=== PATIENT | female | born 1965 | race Caucasian/White ===

== ENCOUNTER → 2019-12-28 10:02 | Outpatient (BNVA) | payer OTHER, SELFPAY | PROVIDERS: Family Provider Nurse Practitioner; PCP Nurse Practitioner; Visit Provider Nurse Practitioner | DX: Z78.0 Asymptomatic menopausal state (principal); E78.5 Hyperlipidemia, unspecified; I10 Essential (primary) hypertension; E55.9 Vitamin D deficiency, unspecified; Z23 Encounter for immunization | CPT/HCPCS: 80053; 80061; 81000; 82306; 84443; 88175 ==

== ENCOUNTER → 2020-09-30 08:05 | Outpatient (BNVA) | payer SELFPAY | PROVIDERS: Family Provider Nurse Practitioner; PCP Nurse Practitioner; Visit Provider Dermatology | DX: Z01.89 Encounter for other specified special examinations (principal) | CPT/HCPCS: 85025 ==

== ENCOUNTER → 2020-12-30 09:29 | Outpatient (BNVA) | payer SELFPAY | PROVIDERS: Family Provider Nurse Practitioner; PCP Nurse Practitioner; Visit Provider Dermatology | DX: Z01.89 Encounter for other specified special examinations (principal) ==

== ENCOUNTER 2021-02-05 07:50 | Outpatient (CLI) | payer SELFPAY ==
[2021-02-05 08:28] VITALS: BP 135/83; BP 138/84; PULSE 66; PULSE 68; RESP 18; RESP 20; TEMP 36.7; O2SAT 95
--- NOTE | 2021-02-05 08:44 | ED_ITS ---
HPI - General Adult History of Present Illness: HPI narrative: This patient presents to the emerg ency department for outpatient monoclonal antibiotic therapy. Due to recent COVID-19 infection. Patient states no increased shortness of breath is mild body aches. Patient states that he did have previous vaccination with fingernail. Patient understands risk and concerns were answered patient may proceed with monoclonal antibody infusion. Will be discharged afterward if no complications. Onset (ago): day(s) Associated symptoms: Deny chest pain, dyspnea, headache(s), nausea, rash, palpitations or vomiting Review of Systems General: Reports: 10 or more systems reviewed and unremarkable except in HPI and below Const: Denies: fever(s), chills, body aches or fatigue Eyes: Denies: change in vision or blurry vision ENMT: Denies: throat pain, hoarseness or mouth pain Card: Denies: chest pain, palpitations, irregular heart rhythm, edema, swelling of feet/ankles or lightheadedness Resp: Denies: dyspnea, productive cough, non-productive cough, wheezing or pain on inspiration GI: Denies: abdominal pain, nausea or vomiting : Denies: flank pain, difficulty voiding, dysuria, urinary frequency, urinary urgency or urinary hesitancy Musc: Denies: neck pain, back pain, extremity pain, extremity swelling, joint pain, joint swelling, joint redness, joint warmth or limited range of motion Skin/Breast: Denies: rash, pruritus, erythema or skin tenderness Neuro: Denies: headache(s), numbness in extremities or weakness in extremities Psych: Denies: anxiety or depression PFS ED PFSH: Medical History ASHD (arteriosclerotic heart disease) A three-vessel coronary artery bypass surgery in 2006. Had a WOODS to the LAD, venous graft to the PDA and the obtuse marginal artery. Cardiac authorization 2008 revealed occluded venous graft to the obtuse marginal artery. Breast nodule Hyperlipidemia Hypertension Vitamin D deficiency Surgical History History of colonoscopy March 2019 History of tubal ligation Hx of CABG Family History Father CAD (coronary artery disease) Grandfather CAD (coronary artery disease) Cancer Grandmother CAD (coronary artery disease) Cancer Diabetes Mother Cancer Other Hyperlipidemia Hypertension Denies family history of Clotting disorder Dementia Chronic kidney disease (CKD) Suicide Anesthesia complication Bleeding disorder Lung disease Stroke Social History Smoking and tobacco status: former smoker Alcohol intake: never Adopted: No Lives independently: Yes Household members: spouse Housing: House Marital status: Number of children: 2 Number of grandchildren: 0 Highest education level completed: High School Graduate service: No Current occupational status: unemployed Pets and animals: Yes History of recent travel: No Current gender identity: Female Physical Exam Const: COMMON NORMALS: no acute distress, average body habitus, patient oriented x3, no limitations, healthy appearing, alert and well nourished HENMT: COMMON NORMALS: normocephalic, atraumatic, hearing grossly normal bilaterally, external ears normal, EAC's normal, TM's normal bilaterally, Normal external nose present, Normal nasal mucous membranes and turbinates present, moist oral mucous membranes, oropharynx normal, dentition normal and gingiva normal HEAD & SCALP: normocephalic and atraumatic NOSE: Normal external nose present and Normal nasal mucous membranes and turbinates present EXTERNAL EAR: Yes external ears normal EXTERNAL AUDITORY CANAL: EAC's normal TYMPANIC MEMBRANE: TM's normal bilaterally Neck/C-Spine: COMMON NORMALS: full ROM, no lymphadenopathy, supple, no menin geal signs, no JVD, Thyroid normal and No carotid bruits THYROID: Thyroid normal Chest: COMMONS NORMALS: normal inspection of the chest, normal palpation of entire chest wall, normal inspection of the breasts and normal palpation of the breasts Breast/axilla inspection: Yes normal inspection of the breasts BREAST/AXILLA PALPATION: Yes normal palpation of the breasts Resp: COMMON NORMALS: normal respiratory effort, No retractions, No use of accessory muscles, clear to auscultation bilaterally and percussion normal AUSCULTATION: clear to auscultation bilaterally PERCUSSION: percussion normal Cardio: COMMON NORMALS: no JVD, regular rate, regular rhythm, S1 normal heart sound present, S2 normal heart sound present, No gallops present (Cardio), No clicks present (Cardio), No murmurs present (Cardio), No rub (Cardio) and Peripheral pulses 2+ throughout RATE: regular rate RHYTHM: regular rhythm HEART SOUNDS: S1 normal heart sound present and S2 normal heart sound present PERIPHERAL PULSES: Peripheral pulses 2+ throughout GI: COMMON NORMALS: Normal to inspection, nondistended, normoactive bowel sounds present, Soft to palpation, non-tender, No hepatosplenomegaly present, no masses and no bruits PALPATION: Yes Soft to palpation and Yes No hepatosplenomegaly present Back/Pelvis: COMMON NORMALS: thoracic and lumbar spine normal to inspection, no thoracic nor lumbar tenderness, thoraco-lumbar ROM normal and straight leg raise negative bilaterally Extremity: COMMON NORMALS: normal to inspection, full ROM, capillary refill normal, no joint enlargement, no clubbing, cyanosis or edema, no calf tenderness and no pedal edema Neuro: COMMON NORMALS: patient oriented x3 SENSORIUM/ORIENTATION: Yes alert MENINGEAL SIGNS: Yes no meningeal signs Course Vital Signs: Vital signs: Vital Signs Temperature 98.0 F 02/05/21 08:28 Pulse Rate 68 02/05/21 08:28 Respiratory Rate 18 02/05/21 08:28 Blood Pressure 135/83 02/05/21 08:28 Pulse Oximetry 95 02/05/21 08:28 MDM - General Adult MDM Narrative: Medical decision making narrative: This patient presents to the emergency department for outpatient monoclonal antibiotic therapy. Due to recent COVID-19 infection. Patient states no increased shortness of breath is mild body aches. Patient states that he did have previous vaccination with fingernail. Patient understands risk and concerns were answered patient may proceed with monoclonal antibody infusion. Will be discharged afterward if no complications. Discharge Plan Discharge Patient Disposition: Home Prescriptions: No Action vitamin B complex [B Complex-Vitamin B12] Tablet 1 tab PO QDAY RF: 0 aspirin 325 mg tablet 325 mg PO QDAY RF: 0 multivitamin [Multiple Vitamins] Tablet 1 tab PO QAM RF: 0 omega-3 fatty acids [Fish Oil Concentrate] 1,000 mg capsule 1,000 mg PO QDAY RF: 0 amlodipine 10 mg tablet 10 mg PO QDAY Qty: 90 RF: 1 carvedilol 25 mg tablet 25 mg PO BID Qty: 180 RF: 1 cholecalciferol (vitamin D3) 1,250 mcg (50,000 unit) tablet 50,000 unit PO .twice a month Qty: 6 RF: 1 furosemide [Lasix] 20 mg tablet 20 mg PO QDAY Qty: 90 RF: 1 lisinopril 40 mg tablet 40 mg PO QDAY Qty: 90 RF: 1 magnesium oxide 400 mg magnesium capsule 400 mg PO BID Qty: 180 RF: 1 potassium chloride [Klor-Con 10] 10 mEq tablet extended release 10 meq PO QDAY Qty: 90 RF: 1 rosuvastatin [Crestor] 20 mg tablet 20 mg PO QDAY Qty: 90 RF: 1 cetirizine [Zyrtec] 10 mg tablet 10 mg PO DAILY PRNRF: 0 nitroglycerin [Nitrostat] 0.4 mg tablet, sublingual 0.4 mg SUBLINGUAL Q5M PRN (Reason: chest pain) 30 Days Qty: 30 RF: 3 levothyroxine 25 mcg tablet 12.5 mcg PO DAILY Qty: 90 RF: 0 Referrals: Thea Umana FNP-C [Primary Care Provider] - Coding Level of Care Code ED Evaporator Operator for Milan Lynn
[2021-02-05 11:49] VITALS: BP 138/84; PULSE 66; RESP 20; O2SAT 95
--- NOTE | 2021-02-12 15:15 | DCPLANNER ---
certified wellness program manager had message that patient received the monoclonal antibody infusion. certified wellness program manager called phone number [phone], unable to speak with patient at this time, a voicemail was left for patient to return employment evaluator/case manager phone call.
== END 2021-02-05 12:55 | disposition home or self-care (01) ==
PROVIDERS: PCP Nurse Practitioner; Visit Provider Nurse Practitioner
DX: U07.1 COVID-19 (principal); I25.10 Atherosclerotic heart disease of native coronary artery without angina pectoris; E78.5 Hyperlipidemia, unspecified; I10 Essential (primary) hypertension; E55.9 Vitamin D deficiency, unspecified; Z95.1 Presence of aortocoronary bypass graft; Z82.49 Family history of ischemic heart disease and other diseases of the circulatory system; Z87.891 Personal history of nicotine dependence

== ENCOUNTER → 2021-04-20 16:10 | Outpatient (BNVA) | payer BC, SELFPAY | PROVIDERS: PCP Nurse Practitioner; Visit Provider Internal Medicine Cardiovascular Disease | DX: R00.2 Palpitations (principal); R55 Syncope and collapse; R06.00 Dyspnea, unspecified; I50.33 Acute on chronic diastolic (congestive) heart failure; R06.02 Shortness of breath; I10 Essential (primary) hypertension; I25.10 Atherosclerotic heart disease of native coronary artery without angina pectoris; E78.2 Mixed hyperlipidemia | CPT/HCPCS: 80048; 83880 ==

== ENCOUNTER → 2021-06-23 09:21 | Outpatient (BNVA) | payer SELFPAY | PROVIDERS: PCP Nurse Practitioner; Visit Provider Dermatology | DX: Z01.89 Encounter for other specified special examinations (principal) ==

== ENCOUNTER 2021-06-25 06:59 | Outpatient (CLI) | payer BC, SELFPAY ==
--- NOTE | 2021-06-25 07:15 | USCV_ITS ---
Janett Samuel Age: 55 Gender: F : 1965 Exam Date: 06/25/2021 07:18 Ordering Phys: Stuart Vazquez MD ([email or web address]) Technologist: MICHELLE Exam Location: [facility] Indication: DAREDN since COVID January 2021. hx CABG 2006 BP: / HR: 68 Rhythm: Sinus Technical Quality: Adequate MEASUREMENTS (Male / Female) Normal Values 2D ECHO LV Diastolic Diameter PLAX 4.3 cm 4.2 - 5.9 / 3.9 - 5.3 cm LV Systolic Diameter PLAX 2.8 cm IVS Diastolic Thickness 1.6 cm 0.6 - 1.0 / 0.6 - 0.9 cm IVS Systolic Thickness 1.7 cm LVPW Diastolic Thickness 1.4 cm 0.6 - 1.0 / 0.6 - 0.9 cm LVPW Systolic Thickness 1.7 cm LVOT Diameter 2.1 cm LV Ejection Fraction 2D Teich 55.9 % LV Ejection Fraction MOD 2C 70.1 % LV Ejection Fraction 2C AL 72.4 % LA Diameter 4.1 cm LA Width 3.8 cm LA Height 4.5 cm RA Width 3.6 cm RA Height 4.9 cm Aorta at Sinotubular Diameter 2.7 cm M-MODE Aortic Annulus Diameter 2.6 cm LA Ao Ratio MM 1.5 MV E Point Septal Separation 0.3 cm DOPPLER AV Peak Velocity 130.0 cm/s LVOT Peak Velocity 106.0 cm/s AV Area Cont Eq vti 3.2 cm squared AV Area Cont Eq pk 2.9 cm squared MV Area PHT 4.0 cm squared Mitral E to A Ratio 0.9 MV E' Velocity 46.5 cm/s Mitral E to MV E' Ratio 10.5 Mitral E to LV E' Lateral Ratio 9.7 Mitral E to LV E' Septal Ratio 11.7 TR Peak Velocity 227.0 cm/s TR Peak Gradient 20.6 mmHg TV Peak E Velocity 74.0 cm/s Right Atrial Pressure 5.0 mmHg Pulmonary Artery Systolic Pressu 25.6 mmHg PV Peak Velocity 99.0 cm/s RV Acceleration Time 0.1 s RV Ejection Time 0.3 s RV AcT/ET 0.3 FINDINGS Left Ventricle Normal LV size and ejection fraction of 55%. Mild hypokinesia of the septum and the inferobasal segment.Grade I/IV diastolic dysfunction (abnormal relaxation filling pattern), normal to mildly elevated filling pressures. Right Ventricle The right ventricle is normal in size and function. Right Atrium The right atrium is normal in size. Left Atrium Mildly increased left atrial size. Mitral Valve No gross abnormalities noted Aortic Valve Thickened aortic valve. Trace aortic valve regurgitation. Tricuspid Valve Trace tricuspid valve regurgitation. Pulmonic Valve Pulmonic valve not well visualized. Pericardium Normal pericardium without effusion. Aorta Normal ascending aorta dimension. CONCLUSIONS Normal LV size and ejection fraction of 55%. Wall motion normality as mentioned above. Mild concentric left ventricular hypertrophy Type I diastolic dysfunction. Thickened aortic valve. Trace aortic valve regurgitation. Trace tricuspid valve regurgitation. Estimated pulmonary artery peak systolic pressure 26 mm of Hg There is no pericardial effusion. There are no intracardiac masses. No previous study is available for comparison. Dr Stuart Vazquez MD FACC (Electronically Signed) Final Date: 26 June 2021 00:29 S
== END 2021-06-25 07:00 | disposition home or self-care (01) ==
LOC: RAD 07:03
PROVIDERS: PCP Nurse Practitioner; Visit Provider Internal Medicine Cardiovascular Disease
DX: R06.09 Other forms of dyspnea (principal); R00.2 Palpitations; Z95.1 Presence of aortocoronary bypass graft; I08.2 Rheumatic disorders of both aortic and tricuspid valves
CPT/HCPCS: 93306

== ENCOUNTER → 2021-09-22 09:17 | Outpatient (BNVA) | payer SELFPAY | PROVIDERS: PCP Nurse Practitioner; Referring Provider Nurse Practitioner; Visit Provider Dermatology | DX: Z01.89 Encounter for other specified special examinations (principal) ==

== ENCOUNTER → 2022-03-23 11:22 | Outpatient (BNVA) | payer SELFPAY | PROVIDERS: PCP Nurse Practitioner; Visit Provider Dermatology | DX: Z01.89 Encounter for other specified special examinations (principal); E03.9 Hypothyroidism, unspecified; E55.9 Vitamin D deficiency, unspecified; I25.10 Atherosclerotic heart disease of native coronary artery without angina pectoris; I10 Essential (primary) hypertension; E78.5 Hyperlipidemia, unspecified ==

== ENCOUNTER → 2022-05-26 10:20 | Outpatient (BNVA) | payer BC, SELFPAY | PROVIDERS: Visit Provider Nurse Practitioner | DX: J02.9 Acute pharyngitis, unspecified (principal); R06.02 Shortness of breath | CPT/HCPCS: 71046; 85025; 87071; 87880 ==

== ENCOUNTER 2022-06-15 11:48 | Outpatient (CLI) | payer BC, SELFPAY ==
--- NOTE | 2022-06-15 12:09 | XRR_ITS ---
PROCEDURE INFORMATION: Exam: XR Chest Exam date and time: 06/15/2022 12:16 PM Age: 56 years old Clinical indication: Shortness of breath; Prior surgery; Surgery type: Triple bypass; Patient HX: Congestion, SOB for 1 month; Additional info: R06.02 - shortness of breath TECHNIQUE: Imaging protocol: Radiologic exam of the chest. Views: 2 views. COMPARISON: CR XR chest 2V* [id number] 05/26/2022 10:18 AM FINDINGS: Lungs: Unremarkable. No consolidation. Pleural spaces: Unremarkable. No pleural effusion. No pneumothorax. Heart/Mediastinum: Unremarkable. No cardiomegaly. Bones/joints: Metallic sternotomy wires are present. XR/XR chest 2V* [id number] IMPRESSION: No acute findings. Status post sternotomy
[2022-06-15 12:27] LABS: Basophils % 0.6 %; Eosinophils # 0.3 10^3/uL (0.0-0.8); Eosinophils % 4.8 %; Hematocrit 43.2 % (37.0-47.0); Hemoglobin 14.3 g/dL (11.5-15.3); Lymphocytes # 2.2 10^3/uL (0.8-4.8); Lymphocytes % 32.3 %; Mean Corpuscular HGB Conc 33.1 g/dL (30.0-36.0); Mean Corpuscular Hemoglobin 29.4 pg (28.0-34.0); Mean Corpuscular Volume 88.7 fl (81-99); Mean Platelet Volume 10.3 fL (7.4-10.4); Monocytes # 0.5 10^3/uL (0.2-0.9); Monocytes % 7.2 %; Nucleated Red Blood Cells % 0 %; Platelet Count 282 10^3/cmm (130-400); Red Blood Count 4.87 10^6/uL (4.1-5.3); Red Cell Distribution Width 12.2 % (12.1-15.1); White Blood Count 6.9 10^3/uL (4.0-10.0)
== END 2022-06-15 11:49 | disposition home or self-care (01) ==
LOC: LAB 11:51
PROVIDERS: Visit Provider Nurse Practitioner
DX: R06.02 Shortness of breath (principal)
CPT/HCPCS: 36415; 71046; 85025

== ENCOUNTER → 2022-09-06 15:06 | Outpatient (BNVA) | payer BC, SELFPAY | PROVIDERS: Visit Provider Internal Medicine Cardiovascular Disease | DX: R06.02 Shortness of breath (principal) | CPT/HCPCS: 36415; 80048; 83880 ==

== ENCOUNTER → 2022-09-21 09:13 | Outpatient (BNVA) | payer SELFPAY | PROVIDERS: PCP Nurse Practitioner; Visit Provider Dermatology | DX: Z01.89 Encounter for other specified special examinations (principal); Z13.6 Encounter for screening for cardiovascular disorders ==

== ENCOUNTER 2022-11-10 08:44 | Outpatient (CLI) | payer BC, SELFPAY ==
[2022-11-10 09:01] VITALS: BMI 31.6
--- NOTE | 2022-11-10 09:15 | ECG_ITS ---
[facility] Test Date: 2022-11-10 Pat Name: Janett Samuel Department: Room: Gender: Female Data Sme: Farzana Zabala : 1965 Requested By: Stuart Vazquez Order Number: [id number] Ezequiel MD: Stuart Vazquez M.D. Interpretive Statements NAME OF STUDY: LEXISCAN SESTAMIBI STRESS TEST INDICATION: Shortness of Breath, PROCEDURE: At the baseline, the EKG revealed normal sinus rhythm with a diffuse nonspecific ST changes. The baseline heart was 70 bpm with a blood pressue of 121/72 mm of Hg Lexiscan was infused over a period of 20 seconds. A total of 0.4 milligrams of Lexiscan was infused. The stress phase was continued for a total of 5 minutes. Heart rate at the end of the stress phase was 89 bpm with a blood pressure 105/65 mm of Hg. The EKG at the peak infusion revealed no significant changes. Sestamibi was injected 20 seconds after the Lexiscan infusion. Heart rate at the end of the recovery phase was 81 bpm with a blood pressure of 101/62 mm of Hg. CONCLUSION: 1. No significant EKG changes with the LexiScan infusion 2. No LexiScan induced chest pain or cardiac arrhythmia 3. Normal blood pressure and heart rate response 4. Sestamibi/sestamibi perfusion scan pending; see separate report. Electronically Signed On 11-11-2022 21:58:10 CDT by Stuart Vazquez M.D. [id number]
--- NOTE | 2022-11-10 09:15 | NMCV_ITS ---
NM marlon perf SPECT r/s* [id number] Janett Samuel Age: 57 Gender: F : 1965 Exam Date: 11/10/2022 10:13 Ordering Phys: Stuart Vazquez MD ([email or web address]) Technologist: ROXANA Clark Exam Location: [facility] Indications: CORONARY ANGIOPLASTY STATUS, SHORTNESS OF BREATH STRESS TEST Please see separate [facility] for [facility] IMAGE PROTOCOL Rest/Stress 1 Lexiscan Day Radiopharmaceutical Dose (mCi) Administration Site Administered by Rest: Tc-99m 10.7 IV ROXANA Baez Sestamibi Stress:Tc-99m 32.2 IV ROXANA Baez Sestamibi Rest: 10-Nov-2022 60 Discovery 630 Stress: 10-Nov-2022 30 Discovery 630 0.4mg Lexiscan. Images obtained in supine and prone position. SPECT RESULTS Technical Quality: Excellent Raw Data Analysis: Normal Image Corrections: No attenuation or motion correction applied Summed Stress Score: 7 Summed Rest Score: 2 Summed Difference Score: 5 PERFUSION FINDINGS Moderate area of moderately decreased tracer uptake was noted in the basal and mid inferior, mid inferolateral and apical lateral regions. Significant reversibility was noted in the inferolateral region with minimal reversibility in the inferior and apical lateral regions FUNCTIONAL RESULTS (calculated via Gated SPECT) Stress Image LV EF (%): 83 Stress EDV (mL):95 TID: 1 Stress ESV (mL):16 FUNCTIONAL FINDINGS: Segmental wall motion analysis revealing no gross wall motion abnormalities IMPRESSIONS 1. Myocardial perfusion imaging revealing moderate area of moderately decreased tracer uptake in the inferior, inferolateral and apical lateral regions with significant reversibility, suggesting myocardial scarring with ischemia in the distribution of the right coronary artery/circumflex artery. 2. Normal LV ejection fraction of 83%. 3. LV wall motion analysis revealing no gross wall motion abnormalities. 4. Normal LV volume Compared to the study from 08/02/2018, the ischemic burden appears to be significantly more with additional involvement of the circumflex artery territory Dr Stuart Vazquez MD FACC (Electronically Signed) Final Date: 11 Nov 2022 07:37 S
[2022-11-10] MEDS: regadenoson 0.4 Mg/5 ml Syringe IVP (10:50)
[2022-11-10 11:10] VITALS: BP 111/62; PULSE 87
== END 2022-11-10 08:45 | disposition home or self-care (01) ==
PROVIDERS: PCP Nurse Practitioner; Visit Provider Internal Medicine Cardiovascular Disease
DX: R06.02 Shortness of breath (principal)
CPT/HCPCS: 36415; 78452; 93017; 96374; A9500; J2785

== ENCOUNTER → 2023-09-20 10:31 | Outpatient (BNVA) | payer SELFPAY | PROVIDERS: PCP Nurse Practitioner; Visit Provider Dermatology | DX: Z01.89 Encounter for other specified special examinations (principal); E03.9 Hypothyroidism, unspecified; E55.9 Vitamin D deficiency, unspecified; I10 Essential (primary) hypertension; E78.2 Mixed hyperlipidemia ==

== ENCOUNTER 2024-06-19 09:30 | Outpatient (CLI) | payer SELFPAY ==
[2024-06-19 09:52] LABS: HF Add Manual Diff No
[2024-06-19 09:55] LABS: Basophils % 0.4 %; Eosinophils # 0.2 10^3/uL (0.0-0.8); Eosinophils % 3.4 %; Hematocrit 45.3 % (36-47); Lymphocytes # 2.4 10^3/uL (0.8-4.8); Lymphocytes % 34.8 %; Mean Corpuscular HGB Conc 32.5 g/dL (30-55); Mean Corpuscular Hemoglobin 28.9 pg (27-33); Mean Platelet Volume 9.6 fL (7.4-10.4); Monocytes # 0.5 10^3/uL (0.2-0.9); Monocytes % 7.2 %; Neutrophils # 3.76 10^3/uL (1.8-7.7); Neutrophils % 54.1 %; Nucleated Red Blood Cells % 0 %; Platelet Count 281 10^3/cmm (157-399); Red Blood Count 5.09 10^6/uL (3.85-5.65); Red Cell Distribution Width 12.4 % (12.1-15.1); White Blood Count 6.96 10^3/uL (3.29-11.43)
[2024-06-19 10:20] LABS: Estmated Average Glucose 120; Hemoglobin A1C 5.8 % (4.0-6.0)
[2024-06-19 10:36] LABS: 25 Hydroxy Vitamin D 29 ng/mL (30-100); Alanine Aminotransferase 13 U/L (0-33); Albumin Level 4.3 g/dL (3.5-5.2); Alkaline Phosphatase 96 U/L (35-105); Anion Gap 13.4 (5-19); Aspartate Amino Transferase 19 U/L (0-32); Blood Urea Nitrogen 9 mg/dL (6-20); Calcium 9.1 mg/dL (8.5-10.5); Carbon Dioxide 27 mmol/L (22-29); Chloride 103 mmol/L (98-107); Cholesterol 121 mg/dL (0-200); Globulin 3.3 g/dL (1.3-4.6); Glomerular Filtration Rate 163.9 mL/min (90-130); Glucose 143 mg/dL (65-115); HDL Cholesterol 39 mg/dL (60-100); LDL Cholesterol Calculated 56 mg/dL (50-129); LDL HDL Ratio 1.44 RATIO (0.00-3.22); Osmolality Calculated 289 mOsm/kg (285-295); Potassium 4.4 mmol/L (3.5-5.1); Sodium 139 mmol/L (136-145); Thyroid Stimulating Hormone 3.43 uIU/mL (0.27-4.20); Total Bilirubin 0.3 mg/dL (0.15-1.2); Total Protein 7.6 g/dL (6.6-8.7); Triglycerides 130 mg/dL (0-150)
== END 2024-06-19 09:31 | disposition home or self-care (01) ==
LOC: LAB 09:33
PROVIDERS: PCP Nurse Practitioner; Visit Provider Dermatology
DX: Z13.9 Encounter for screening, unspecified (principal)
CPT/HCPCS: 36415

== ENCOUNTER 2024-08-09 14:48 | Observation (INO) | payer BC, SELFPAY ==
[2024-08-09] VITALS (18 sets, daily range): BP systolic 110–136; BP diastolic 40–79; PULSE 70–82; RESP 16–20; TEMP 36.8–37; O2SAT 81–95; BMI 34.0
--- NOTE | 2024-08-09 15:06 | XR_ITS ---
WS: [id number] Exam: XR chest 1V portable [id number] Date/Time of Exam: 08/09/2024 3:29 PM Reason For Exam: Shortness of breath Comparison 06/15/2022. The lungs are hyperinflated and clear. Plaque atelectasis in the LEFT base. Heart size is normal. The mediastinum is normal in contour. Signs of previous CABG surgery. Bony structures are intact. XR/XR chest 1V portable [id number] IMPRESSION: 1. Pulmonary hyperinflation which may indicate obstructive lung disease. 2. Plaque atelectasis in the LEFT base. No acute process.
--- NOTE | 2024-08-09 15:12 | ED_ITS ---
HPI - SOB/Dyspnea 2 General: Chief Complaint: Shortness of Breath/Dyspnea Stated Complaint: flu postive, sent from urgent care sob Time Seen by Provider: 08/09/24 15:01 History of Present Illness: HPI Narrative: 58-year-old female with a history of cor onary artery disease status post CABG, hypertension, hyperlipidemia who presents to the emergency room from urgent care with influenza and hypoxemia. She said she has been sick for about 4 days now. She has had cough. Shortness of breath. At the urgent care she was satting in the 70s and is requiring 4 to 5 L at this point. No altered mental status. No focal motor deficits. No chest pain. No abdominal pain. No vomiting. Related Data Home Medications Medication Instructions Recorded Confirmed aspirin 325 mg tablet 325 mg PO QDAY 08/07/19 08/09/24 multivitamin (Multiple Vitamins 1 tab PO QAM 08/07/19 08/09/24 tablet) cetirizine 10 mg tablet (Zyrtec) 10 mg PO DAILY 10/20/20 08/09/24 carvedilol 25 mg tablet 25 mg PO BID 08/09/24 08/09/24 cholecalciferol (vitamin D3) 125 125 mcg PO DAILY 08/09/24 08/09/24 mcg (5,000 unit) tablet (Vitamin D3) furosemide 20 mg tablet 20 mg PO DAILY 08/09/24 08/09/24 rosuvastatin 20 mg tablet (Crestor) 20 mg PO QPM 08/09/24 08/09/24 Previous Rx's Medication Instructions Recorded nitroglycerin 0.4 mg sublingual 0.4 mg sublingual Q5M PRN chest 03/01/22 tablet (Nitrostat) pain #30 tabs magnesium oxide 400 mg PO BID #180 caps 04/22/22 nebulizers #1 ea 05/26/22 potassium chloride 10 mEq 10 meq PO QDAY #90 tabs 10/18/23 tablet,extended release (Klor-Con) lisinopril 40 mg tablet 40 mg PO QDAY #90 tabs 10/31/23 albuterol sulfate 2.5 mg/3 mL 2.5 mg (3 mL) inhalation Q4H PRN 11/17/23 (0.083 %) solution for nebulization shortness of breath or wheezing #75 mL amlodipine 10 mg tablet 10 mg PO QDAY #90 tabs 07/13/24 Allergies Allergy/AdvReac Type Severity Reaction Status Date / Time oxycodone [From Percocet] Allergy Unknown unknown Verified 08/09/24 14:02 propoxyphene Allergy Unknown hives Verified 08/09/24 14:02 [From Darvocet-N] Review of Systems 2 Narrative: Constitutional symptoms: Negative except as documented in HPI. Skin symptoms: Negative except as documented in HPI. Eye symptoms: Negative except as documented in HPI. ENMT symptoms: Negative except as documented in HPI. Respiratory symptoms: Negative except as documented in HPI. Cardiovascular symptoms: Negative except as documented in HPI. Gastrointestinal symptoms: Negative except as documented in HPI. Genitourinary symptoms: Negative except as documented in HPI. Musculoskeletal symptoms: Negative except as documented in HPI. Neurologic symptoms: Negative except as documented in HPI. Psychiatric symptoms: Negative except as documented in HPI. Endocrine symptoms: Negative except as documented in HPI. PFSH ED 2 PFSH: Medical History (Updated 08/09/24 @ 16:34 by Bebe Acevedo MD) Vitamin D deficiency ASHD (arteriosclerotic heart disease) A three-vessel coronary artery bypass surgery in 2006. Had a WOODS to the LAD, venous graft to the PDA and the obtuse marginal artery. Cardiac authorization 2008 revealed occluded venous graft to the obtuse marginal artery. Hypertension Hyperlipidemia Breast nodule Surgical History (Updated 08/09/24 @ 14:40 by RENA Cota) History of colonoscopy March 2019 Hx of CABG History of tubal ligation Family History Father CAD (coronary artery disease) Grandfather CAD (coronary artery disease) Cancer Grandmother CAD (coronary artery disease) Cancer Diabetes Mother Cancer Other Hyperlipidemia Hypertension Denies family history of Clotting disorder Dementia Chronic kidney disease (CKD) Suicide Anesthesia complication Bleeding disorder Lung disease Stroke Social History Smoking and tobacco/nicotine status: former use of tobacco/nicotine Alcohol intake: never Substance/Drug Use: never Adopted: No Lives independently: Yes Household members: spouse Housing: House Marital status: Number of children: 2 Number of grandchildren: 0 Highest education level completed: High School Graduate service: No Current occupational status: unemployed Pets and animals: Yes Current gender identity: Female Physical Exam 2 Narrative: EXAM NARRATIVE: General: Alert, no acute distress. Skin: Warm, dry. Head: Normocephalic, atraumatic. Neck: Supple, trachea midline. Eye: Extraocular movements are intact. Ears, nose, mouth and throat: Oral mucosa moist. Cardiovascular: Regular rate and rhythm, Normal peripheral perfusion. Respiratory: coarse, some mild wheeze, patient is tachypneic with some retractions. Moderate increased work of breathing. Gastrointestinal: Soft, Nontender, Non distended, Normal bowel sounds. Musculoskeletal: Normal ROM, no deformity. Neurological: Alert and oriented to person, place, time, and situation, No focal neurological deficit observed. Psychiatric: Cooperative, appropriate mood & affect. Course 2 Vital Signs: Vital signs: Vital Signs Temperature 98.6 F 08/09/24 14:53 Pulse Rate 82 08/09/24 15:35 Respiratory Rate 16 08/09/24 15:12 Blood Pressure 136/79 08/09/24 15:35 Pulse Oximetry 93 08/09/24 15:35 Oxygen Delivery Me thod Nasal Cannula 08/09/24 15:35 Oxygen Flow Rate 3.5 08/09/24 15:35 MDM - SOB/Dyspnea Medical Decision Making Differential diagnosis for patient with shortness of breath includes but is not limited to and based on the above HPI, review of systems and physical exam: Pneumonia. Bronchitis. Asthma or COPD with acute exacerbation. Acute coronary syndrome / TN. Pulmonary embolism. Anxiety. Congestive heart failure. Viral infections including influenza and Covid-19. Atrial fibrillation. Anxiety. Pleural effusion. Pneumothorax. Orders placed to evaluate differential diagnosis based on the above differential, HPI and physical exam EKG: Time 1533. Rate 79. Normal sinus rhythm, No ST-T changes, no ectopy, normal IA & QRS intervals, This was reviewed and interpreted by myself the ER physician at 1535. Chest x-ray: Hyperexpansion. Plate atelectasis. Sternotomy wires. No infiltrate. No pneumothorax. This was reviewed and interpreted by myself the emergency room physician. I also reviewed the radiology report. Lab Review: Laboratory results were reviewed and interpreted by myself the emergency room physician. No leukocytosis. No anemia. Platelets are normal. No renal failure. Patient is positive for influenza. I reviewed the patient's medical record. Reexamination: Patient is still requiring 3 to 5 L nasal cannula. Otherwise she is remaining stable. No tachycardia. Work of breathing is better when at rest. Consultation: I spoke with Dr. Lenz who is on-call for the hospitalist service who agrees to admission Assessment and plan: Influenza Hypoxemia ?IV Solu-Medrol and an updraft in the emergency room. -I discussed the patient with the hospitalist on-call who is admitting the patient. - Discussed findings and plan with patient. Answered any questions. - All laboratory values were reviewed and interpreted personally by myself, the ER physician - All imaging was reviewed and interpreted personally by myself, the ER physician. - Evaluation and treatment of this problem were appropriate in the emergency setting Lab Data 08/09/24 15:24 08/09/24 15:24 Labs/Radiology: Radiology Impressions Chest X-Ray 08/09/24 15:06 IMPRESSION: 1. Pulmonary hyperinflation which may indicate obstructive lung disease. 2. Plaque atelectasis in the LEFT base. No acute process. Laboratory Results WBC 5.73 10^3/uL (3.29-11.43) 08/09/24 15:24 RBC 5.01 10^6/uL (3.85-5.65) 08/09/24 15:24 Hgb 14.60 g/dL (11.27-16.99) 08/09/24 15:24 Hct 44.2 % (36-47) 08/09/24 15:24 MCV 88.2 fl (85-98) 08/09/24 15:24 MCH 29.1 pg (27-33) 08/09/24 15:24 MCHC 33.0 g/dL (30-55) 08/09/24 15:24 RDW 12.4 % (12.1-15.1) 08/09/24 15:24 Plt Count 230 10^3/cmm (157-399) 08/09/24 15:24 MPV 10.2 fL (7.4-10.4) 08/09/24 15:24 Neut % (Auto) 59.7 % 08/09/24 15:24 Lymph % (Auto) 28.8 % 08/09/24 15:24 Craven % (Auto) 10.8 % 08/09/24 15:24 Eos % (Auto) 0.2 % 08/09/24 15:24 Baso % (Auto) 0.3 % 08/09/24 15:24 Neut # (Auto) 3.42 10^3/uL (1.8-7.7) 08/09/24 15:24 Lymph # (Auto) 1.7 10^3/uL (0.8-4.8) 08/09/24 15:24 Craven # (Auto) 0.6 10^3/uL (0.2-0.9) 08/09/24 15:24 Eos # (Auto) 0.0 10^3/uL (0.0-0.8) 08/09/24 15:24 Baso # (Auto) 0.0 10^3/uL (0.0-0.1) 08/09/24 15:24 Nucleated RBC % (auto) 0 % 08/09/24 15: Nucleated RBCs # 0.0 /100WBC 08/09/24 15:24 Specimen Type Arterial 08/09/24 15:10 Sample Site Radial, left 08/09/24 15:10 ABG pH 7.40 (7.35-7.45) 08/09/24 15:10 ABG pCO2 47.7 mmHg (35-45) H 08/09/24 15:10 ABG pO2 58.5 mmHg (80.0-100.0) L 08/09/24 15:10 ABG HCO3 29.7 mmol/L (22-26) H 08/09/24 15:10 ABG O2 Saturation 90.4 08/09/24 15:10 ABG Base Excess 4.0 mmol/L (-2.0-2.0) H 08/09/24 15:10 Eric Test Pos 08/09/24 15:10 A-a O2 Gradient 4.1 mmHg (5-10) L 08/09/24 15:10 Hematocrit 44.5 % (37-47) 08/09/24 15:10 Hgb O2 Saturation 88.5 % (95-100) L 08/09/24 15:10 Carboxyhemoglobin 1.2 %THgb (0.4-20.1) 08/09/24 15:10 Methemoglobin 0.9 % (0.4-1.5) 08/09/24 15:10 Total Hemoglobin 14.5 g/dL (12-16) 08/09/24 15:10 Sodium 142.0 mmol/L (131-143) 08/09/24 15:10 Potassium 3.4 mmol/L (3.5-5.0) L 08/09/24 15:10 Glucose 126.0 mg/dL (70-115) H 08/09/24 15:10 Ionized Calcium 1.1 mmol/L (1.1-1.4) 08/09/24 15:10 O2 Delivery Device Nc 08/09/24 15:10 O2 Liters/Min 3.5 % 08/09/24 15:10 Legal Administrative Assistant ID [place] 08/09/24 15:10 Sodium 139 mmol/L (136-145) 08/09/24 15:24 Potassium 3.9 mmol/L (3.5-5.1) 08/09/24 15:24 Chloride 99 mmol/L (98-107) 08/09/24 15:24 Carbon Dioxide 31 mmol/L (22-29) H 08/09/24 15:24 Anion Gap 12.9 (5-19) 08/09/24 15:24 BUN 9 mg/dL (6-20) 08/09/24 15:24 Creatinine 0.5 mg/dL (0.5-0.9) 08/09/24 15:24 GFR Calculation 126.7 mL/min (90-130) 08/09/24 15:24 Glucose 117 mg/dL (65-115) H 08/09/24 15:24 Calculated Osmolality 288 mOsm/kg (285-295) 08/09/24 15:24 Lactic Acid 0.9 mmol/L (0.5-2.2) 08/09/24 15:24 Calcium 8.5 mg/dL (8.5-10.5) 08/09/24 15:24 Total Bilirubin 0.2 mg/dL (0.15-1.2) 08/09/24 15:24 AST 27 U/L (0-32) 08/09/24 15:24 ALT 20 U/L (0-33) 08/09/24 15:24 Alkaline Phosphatase 102 U/L (35-105) 08/09/24 15:24 Troponin T Baseline 16 ng/L (0-10) H 08/09/24 15:24 C-Reactive Protein 30.3 mg/L (0.0-4.9) H 08/09/24 15:24 Total Protein 6.6 g/dL (6.6-8.7) 08/09/24 15:24 Albumin 4.1 g/dL (3.5-5.2) 08/09/24 15:24 Globulin 2.5 g/dL (1.3-4.6) 08/09/24 15:24 Coronavirus (PCR) Negative (Negative) 08/09/24 15:22 Influenza A (PCR) Positive (Negative) 08/09/24 15:22 Influenza Type B (PCR) Negative (Negative) 08/09/24 15:22 RSV (PCR) Negative (Negative) 08/09/24 15:22 All radiology interpretation(s) finalized by discharge Discharge Plan Discharge Patient Disposition: Placed in Observation Clinical Impression: Influenza A, Hypoxemia Coding Level of Care Code ED Media Manager for [place]
[2024-08-09 15:21] LABS: ABG PCO2 47.7 mmHg (35-45); Alveolar-Arterial Oxygen Gradi 4.1 mmHg (5-10); Arterial Blood Gas Hematocrit 44.5 % (37-47); Blood Gas Allen Test Pos; Blood Gas LPM 3.5 %; Blood Gas Operator Identificat WALCI; Blood Gas Sample Site Radial, left; Blood Gas Sample Type Arterial; Carboxyhemoglobin 1.2 %THgb (0.4-20.1); HCO3 ABG 29.7 mmol/L (22-26); HGB O2 Sat 88.5 % (95-100); Ionized Calcium Level - ABG 1.1 mmol/L (1.1-1.4); Methemoglobin 0.9 % (0.4-1.5); Oxygen Device NC; Oxygen Saturation ABG 90.4; PO2 ABG 58.5 mmHg (80.0-100.0); Potassium Level - ABG 3.4 mmol/L (3.5-5.0); Total Hemoglobin 14.5 g/dL (12-16)
[2024-08-09] MEDS: albuterol 2.5 mg/3 mL Neb INHALATION (15:24)
[2024-08-09] MEDS: methylPREDNISolone sod succ 125 mg/2 mL INJ IVP (15:28)
--- NOTE | 2024-08-09 15:33 | ECG_ITS ---
[facility]: 2024-08-09 Pat Name: Janett Samuel Department: Room: Gender: Female Enamel Buffer: : 1965 Requested By: Bebe Oreilly Order Number: [id number] Ezequiel MD: Aaron Morrison M.D. Measurements Intervals [place] Rate: 79 P: 64 MI: 145 QRS: 81 QRSD: 98 T: 79 QT: 363 QTc: 417 Interpretive Statements SINUS RHYTHM NONSPECIFIC T-WAVE ABNORMALITY No previous ECG available for comparison Electronically Signed On 08-11-2024 13:21:56 [employer]SEMBLER by Aaron Morrison M.D. [email or web address]
[2024-08-09 15:46] LABS: Basophils % 0.3 %; Eosinophils % 0.2 %; Hematocrit 44.2 % (36-47); Lymphocytes # 1.7 10^3/uL (0.8-4.8); Lymphocytes % 28.8 %; Mean Corpuscular Hemoglobin 29.1 pg (27-33); Mean Corpuscular Volume 88.2 fl (85-98); Mean Platelet Volume 10.2 fL (7.4-10.4); Monocytes # 0.6 10^3/uL (0.2-0.9); Monocytes % 10.8 %; Neutrophils # 3.42 10^3/uL (1.8-7.7); Neutrophils % 59.7 %; Nucleated Red Blood Cells % 0 %; Platelet Count 230 10^3/cmm (157-399); Red Blood Count 5.01 10^6/uL (3.85-5.65); Red Cell Distribution Width 12.4 % (12.1-15.1); White Blood Count 5.73 10^3/uL (3.29-11.43)
[2024-08-09 16:04] LABS: Lactic Sepsis W/Reflex 0.9 mmol/L (0.5-2.2); Troponin(5th) Baseline 16 ng/L (0-10)
[2024-08-09 16:09] LABS: Alanine Aminotransferase 20 U/L (0-33); Albumin Level 4.1 g/dL (3.5-5.2); Alkaline Phosphatase 102 U/L (35-105); Anion Gap 12.9 (5-19); Aspartate Amino Transferase 27 U/L (0-32); Blood Urea Nitrogen 9 mg/dL (6-20); C Reactive Protein 30.3 mg/L (0.0-4.9); Calcium 8.5 mg/dL (8.5-10.5); Carbon Dioxide 31 mmol/L (22-29); Chloride 99 mmol/L (98-107); Creatinine Clr Calc Pharmacy 133.0968; Globulin 2.5 g/dL (1.3-4.6); Glomerular Filtration Rate 126.7 mL/min (90-130); Glucose 117 mg/dL (65-115); Osmolality Calculated 288 mOsm/kg (285-295); Potassium 3.9 mmol/L (3.5-5.1); Sodium 139 mmol/L (136-145); Total Bilirubin 0.2 mg/dL (0.15-1.2); Total Protein 6.6 g/dL (6.6-8.7)
[2024-08-09 16:28] LABS: Influenza A POSITIVE (Negative); Influenza B NEGATIVE (Negative); Respiratory Syncytial Virus Ce NEGATIVE (Negative); SARS-CoV-2 PCR NEGATIVE (Negative)
--- NOTE | 2024-08-09 16:44 | P.HP_ITS ---
Providers/Chief Complaint 2 Primary Care Provider: KURT Storm Chief Complaint: flu postive, sent from urgent care sob History of Present Illness Janett Samuel is a 58 year old female with a past medical history significant for recurrent bronchitis, coronary artery disease with history of triple-vessel CABG in 2006, hypertension, and hyperlipidemia who presents to the emergency department with reported hypoxia. Per ED provider, patient was found to have SPO2 in the 70s prior to arrival and requiring 4 to 5 L supplemental oxygen support. Patient reports she was in her usual state of health until this past Tuesday when she developed flulike symptoms. She is diagnosed with influenza A. She reports her worst symptoms has been shortness of breath. She endorses associated symptoms of generalized malaise and fatigue. Endorses associated wheezing. She notes minimal exertion significantly worsens her symptoms. Denies alleviating factors. In the emergency department, patient was found to be hypoxic requiring supplemental oxygen support. Influenza A infection was confirmed. Chest x-ray showed hyperinflation suspicious for obstructive pathology. Patient does report receiving influenza vaccine this season. She does report history of recurrent bronchitis for which she has nebulizer at home. She states that she had pulmonary function testing done prior to CABG which was in 2006. She does not remember anything remarkable the PFT testing at that time. Review of Systems 2 Narrative: A complete review of systems was obtained and is negative except as stated in HPI. Medications/Allergies Home Medications Medication Instructions Recorded Confirmed Last Taken Type aspirin 325 mg tablet 325 mg PO QDAY 08/07/19 08/09/24 08/09/24 History multivitamin (Multiple Vitamins 1 tab PO QAM 08/07/19 08/09/24 08/09/24 History tablet) cetirizine 10 mg tablet (Zyrtec) 10 mg PO DAILY 10/20/20 08/09/24 08/09/24 History nitroglycerin 0.4 mg sublingual 0.4 mg sublingual Q5M PRN chest 03/01/22 08/09/24 Unknown Rx tablet (Nitrostat) pain #30 tabs magnesium oxide 400 mg PO BID #180 caps 04/22/22 08/09/24 08/09/24 Rx nebulizers #1 ea 05/26/22 08/09/24 Unknown Rx potassium chloride 10 mEq 10 meq PO QDAY #90 tabs 04/04/0308/09/24 08/09/24 Rx tablet,extended release (Klor-Con) lisinopril 40 mg tablet 40 mg PO QDAY #90 tabs 10/31/23 08/09/24 08/09/24 Rx albuterol sulfate 2.5 mg/3 mL 2.5 mg (3 mL) inhalation Q4H PRN 11/17/23 08/09/24 Unknown Rx (0.083 %) solution for nebulization shortness of breath or wheezing #75 mL amlodipine 10 mg tablet 10 mg PO QDAY #90 tabs 07/13/24 08/09/24 08/09/24 Rx carvedilol 25 mg tablet 25 mg PO BID 08/09/24 08/09/24 08/09/24 History cholecalciferol (vitamin D3) 125 125 mcg PO DAILY 08/09/24 08/09/24 08/09/24 History mcg (5,000 unit) tablet (Vitamin D3) furosemide 20 mg tablet 20 mg PO DAILY 08/09/24 08/09/24 08/09/24 History rosuvastatin 20 mg tablet (Crestor) 20 mg PO QPM 08/09/24 08/09/24 08/08/24 History Allergies Allergy/AdvReac Type Severity Reaction Status Date / Time oxycodone [From Percocet] Allergy Unknown unknown Verified 08/09/24 14:02 propoxyphene Allergy Unknown hives Verified 08/09/24 14:02 [From Darvocet-N] PFSH Acute 2 PFSH: Medical History Vitamin D deficiency ASHD (arteriosclerotic heart disease) A three-vessel coronary artery bypass surgery in 2006. Had a WOODS to the LAD, venous graft to the PDA and the obtuse marginal artery. Cardiac authorization 2008 revealed occluded venous graft to the obtuse marginal artery. Hypertension Hyperlipidemia Breast nodule Surgical History History of colonoscopy March 2019 Hx of CABG History of tubal ligation Family History Father CAD (coronary artery disease) Grandfather CAD (coronary artery disease) Cancer Grandmother CAD (coronary artery disease) Cancer Diabetes Mother Cancer Other Hyperlipidemia Hypertension Denies family history of Clotting disorder Dementia Chronic kidney disease (CKD) Suicide Anesthesia complication Bleeding disorder Lung disease Stroke Social History Smoking and tobacco/nicotine status: former use of tobacco/nicotine Alcohol intake: never Substance/Drug Use: never Adopted: No Lives independently: Yes Household members: spouse Housing: House Marital status: Number of children: 2 Number of grandchildren: 0 Highest education level completed: High School Graduate service: No Current occupational status: unemployed Pets and animals: Yes Current gender identity: Female Vitals/I&O/Wt Last Vital Signs Temp 98.6 F 08/09/24 14:53 Pulse 71 08/09/24 16:30 Resp 16 08/09/24 15:12 BP 111/40 08/09/24 16:30 Pulse Ox 94 08/09/24 16:30 O2 Del Method Room Air 08/09/24 16:30 O2 Flow Rate 3.5 08/09/24 15:35 Weight last 48 hrs Weight 89.811 kg Physical Exam 2 Narrative: General: Patient is awake. Sitting on stretcher. Appears fatigued but very pleasant. Conversational. Head: Normocephalic. Atraumatic. EOM intact. Dry mucous membranes. Neck: No JVD. Cardiovascular: RRR. No gallops. No murmurs. Lungs: Moderate air movement. End expiratory wheezing throughout bilateral lung trinh. Slight conversational dyspnea. On supplemental oxygen support via nasal cannula. No crackles rales or rhonchi present. Skin: No jaundice. No rashes. Abdomen: Normal bowel sounds, abdomen soft and nontender. Genito Urinary: Genital exam not performed since complaints not related. Rectal: Rectal exam not performed since no symptoms indicated blood loss. Extremities: No cyanosis or clubbing. Musculoskeletal: No swollen or erythematous joints. Neurological: Moves all 4 extremities. No myoclonus. Data 08/09/24 15:24 08/09/24 15:24 Micro: Microbiology 08/09/24 15:32 Blood Culture - Preliminary Blood SPECIMEN COLLECTED 08/09/24 15:24 Blood Culture - Preliminary Blood SPECIMEN COLLECTED A&P Assessment and plan (1) Acute exacerbation of chronic obstructive bronchitis: Acute exacerbation of suspected chronic obstructive bronchitis/COPD Trigger is acute influenza A infection Start systemic steroids Start inhaled steroids Schedule breathing treatments Treat underlying influenza infection Recommend full pulmonary function testing after complete recovery Supportive care (2) Hypoxemia: Acute hypoxic respiratory insufficiency secondary to reactive airway exacerbation Treatment of reactive airway exacerbation as above Provide supplemental oxygen, patient has not required home oxygen previously SpO2 goal of 92 to 96% (3) Influenza A: Droplet precautions Tamiflu (4) ASHD (arteriosclerotic heart disease): Continue aspirin Continue beta-gregorio Continue statin (5) Hypertension: Continue Norvasc Continue Coreg Continue lisinopril Qualifiers: Hypertension type: essential hypertension Qualified Code(s): I10 - Essential (primary) hypertension (6) Hyperlipidemia: Continue statin Qualifiers: Hyperlipidemia type: mixed hyperlipidemia Qualified Code(s): E78.2 - Mixed hyperlipidemia Plan DVT prophylaxis: Lovenox CODE STATUS: Full code Attestations 2 Medical Necessity Statement*: Patient presents with significant hypoxia, found to have reactive airway exacerbation with acute hypoxic respiratory insufficiency with expected hospitalization not to cross 2 midnights for IV steroids, breathing treatments, Tamiflu, supplemental oxygen support and supportive care. Coding Level of Care Code Acute Code for [facility] Diagnoses Acute exacerbation of chronic obstructive bronchitis J44.1 Hypoxemia R09.02 Influenza A J10.1 ASHD (arteriosclerotic heart disease) I25.10 Essential hypertension I10 Hypertension type: essential hypertension Mixed hyperlipidemia E78.2 Hyperlipidemia type: mixed hyperlipidemia
[2024-08-09 18:06] LABS: Troponin 5 2HR 6.27 ng/L (0-10)
[2024-08-09 18:07] LABS: Troponin 5 2HR Delta -9.73 ABS# (0-10)
--- NOTE | 2024-08-09 19:35 | PC.NURSE ---
attempted to call report, med surg nurse to call back.
[2024-08-09] MEDS: oseltamivir phosphate 75 mg Capsule PO (20:47)
[2024-08-09] MEDS: acetaminophen 325 mg Tablet 650 MG PO (20:47)
[2024-08-09] MEDS: carvedilol 25 mg Tablet PO (20:47)
[2024-08-09] MEDS: enoxaparin 40 mg/0.4 mL Syringe SUBCUT (20:47)
[2024-08-09] MEDS: atorvastatin 40 mg Tablet PO (20:47)
[2024-08-09] MEDS: cetylpyridinium Lozenge 1 EACH MUCOUS MEM (20:47)
[2024-08-09] MEDS: methylPREDNISolone sod succ 40 mg/mL INJ IVP (20:48)
[2024-08-09 22:54] LABS: Bilirubin Urine Negative (Negative); Blood Urine Negative (Negative); Glucose Urine UA Negative (Normal); Ketones Urine Trace (Negative); Leukocyte Esterase Urine Negative (Negative); Nitrate Urine Negative (Negative); Protein Urine 1+ (Negative); Specific Gravity, Urine 1.017 (1.005-1.030); Urine Appearance Clear (CLEAR); Urine Color Yellow (Yellow)
[2024-08-09 22:59] LABS: Add Urine Microscopic? YES; Bacteria Urine Trace /hpf; Hyaline Casts Urine 3.71 /lpf; RBC Urine 0-2 /hpf (0-2); WBC Urine 0-5 /hpf (0-5)
[2024-08-10] VITALS (13 sets, daily range): BP systolic 102–131; BP diastolic 52–77; PULSE 65–84; RESP 16–19; TEMP 36.6–37; O2SAT 84–99
[2024-08-10] MEDS: methylPREDNISolone sod succ 40 mg/mL INJ IVP ×4 (02:03→20:12)
[2024-08-10] MEDS: acetaminophen 325 mg Tablet 650 MG PO ×3 (04:33→20:12)
[2024-08-10] MEDS: cetylpyridinium Lozenge 1 EACH MUCOUS MEM ×3 (04:34→20:12)
[2024-08-10] MEDS: budesonide 0.5 mg/2 mL Neb INHALATION ×2 (07:37→19:32)
[2024-08-10] MEDS: ipratropium-albuterol 3 mL Neb INHALATION ×3 (07:37→19:34)
[2024-08-10] MEDS: lisinopril 20 mg Tablet 40 MG PO (09:15)
[2024-08-10] MEDS: cetirizine 10 mg Tablet PO (09:16)
[2024-08-10] MEDS: carvedilol 25 mg Tablet PO ×2 (09:16→17:37)
[2024-08-10] MEDS: amlodipine 10 mg Tablet PO (09:16)
[2024-08-10] MEDS: oseltamivir phosphate 75 mg Capsule PO ×2 (09:16→20:12)
[2024-08-10] MEDS: aspirin 325 mg Tablet PO (09:16)
--- NOTE | 2024-08-10 10:44 | PM.PN ---
Subjective Subjective: Patient reports her breathing similar to yesterday. She still has significant dyspnea on exertion. Requiring supplemental oxygen. Reports associated cough. We discussed RT walk study today and pending those results will depend neck steps. She is in agreement. Medications: Reviewed: Yes Vitals/I&O/Wt Last Vital Signs Temp 97.8 F 08/10/24 07:55 Pulse 77 08/10/24 07:55 Resp 16 08/10/24 07:55 BP 113/62 08/10/24 07:55 Pulse Ox 84 L 08/10/24 09:04 O2 Del Method Nasal Cannula 08/10/24 07:55 O2 Flow Rate 6 08/10/24 09:04 08/09/24 08/10/24 08/10/24 22:59 06:59 14:59 Intake Total 0 / 0 450 / 450 480 / 480 Output Total 100 / 100 Balance -100 / -100 450 / 350 480 / 480 Weight last 48 hrs Weight 87.044 kg Weight 85.757 kg Weight 89.811 kg Physical Exam Narrative: General: Patient is awake. Alert. Pleasant. Head: Normocephalic. Atraumatic. EOM intact. Neck: No JVD. Cardiovascular: RRR. No gallops. No murmurs. Lungs: Moderate air movement, not significantly improved from yesterday's exam. Persistent end expiratory wheezing throughout bilateral lung trinh. On supplemental oxygen support. Skin: No jaundice. No rashes. Abdomen: Normal bowel sounds, abdomen soft and nontender. Extremities: No cyanosis or clubbing. Musculoskeletal: No swollen or erythematous joints. Neurological: Moves all 4 extremities. No myoclonus. Data 08/09/24 15:24 08/09/24 15:24 Micro: Microbiology 08/09/24 15:32 Blood Culture - Preliminary Blood SPECIMEN COLLECTED 08/09/24 15:24 Blood Culture - Preliminary Blood SPECIMEN COLLECTED A&P Assessment and plan (1) Acute exacerbation of chronic obstructive bronchitis: Acute exacerbation of suspected chronic obstructive bronchitis/COPD Trigger is acute influenza A infection Continue systemic steroids, plan to transition to oral steroids soon Continue inhaled steroids Schedule breathing treatments She will need refills for nebulizing treatments at discharge Treat underlying influenza infection Recommend full pulmonary function testing after complete recovery 6-minute walk test today, if she does well with this, we will consider discharge home (2) Hypoxemia: Acute hypoxic respiratory insufficiency secondary to reactive airway exacerbation Treatment of reactive airway exacerbation as above Provide supplemental oxygen, patient has not required home oxygen previously SpO2 goal of 92 to 96% (3) Influenza A: Droplet precautions Continue Tamiflu (4) ASHD (arteriosclerotic heart disease): Continue aspirin Continue beta-gregorio Continue statin (5) Hypertension: Continue Norvasc Continue Coreg Continue lisinopril Qualifiers: Hypertension type: essential hypertension Qualified Code(s): I10 - Essential (primary) hypertension (6) Hyperlipidemia: Continue statin Qualifiers: Hyperlipidemia type: mixed hyperlipidemia Qualified Code(s): E78.2 - Mixed hyperlipidemia Plan DVT prophylaxis: Lovenox CODE STATUS: Full code Attestations Medical Necessity Statement*: Patient requires ongoing hospitalization for IV steroids, breathing treatments, supplemental oxygen support and RT evaluation. Coding Level of Care Code Acute Code for [facility] Fwd Diagnoses Acute exacerbation of chronic obstructive bronchitis J44.1 Hypoxemia R09.02 Influenza A J10.1 ASHD (arteriosclerotic heart disease) I25.10 Essential hypertension I10 Hypertension type: essential hypertension Mixed hyperlipidemia E78.2 Hyperlipidemia type: mixed hyperlipidemia
[2024-08-10] MEDS: enoxaparin 40 mg/0.4 mL Syringe SUBCUT (20:12)
[2024-08-10] MEDS: atorvastatin 40 mg Tablet PO (20:12)
[2024-08-11] MEDS: methylPREDNISolone sod succ 40 mg/mL INJ IVP ×2 (02:04→08:29)
[2024-08-11 04:00] VITALS: BP 132/64; PULSE 72; RESP 18; TEMP 36.7; O2SAT 91
[2024-08-11 05:21] VITALS: PULSE 64
[2024-08-11] MEDS: budesonide 0.5 mg/2 mL Neb INHALATION (07:50)
[2024-08-11 07:53] VITALS: PULSE 81; RESP 18; O2SAT 98
[2024-08-11 08:00] VITALS: BP 121/72; PULSE 65; RESP 16; TEMP 36.6; O2SAT 94
[2024-08-11] MEDS: cetirizine 10 mg Tablet PO (08:28)
[2024-08-11] MEDS: lisinopril 20 mg Tablet 40 MG PO (08:29)
[2024-08-11] MEDS: oseltamivir phosphate 75 mg Capsule PO (08:29)
[2024-08-11] MEDS: carvedilol 25 mg Tablet PO (08:29)
[2024-08-11] MEDS: amlodipine 10 mg Tablet PO (08:29)
[2024-08-11] MEDS: cetylpyridinium Lozenge 1 EACH MUCOUS MEM (08:29)
[2024-08-11] MEDS: aspirin 325 mg Tablet PO (08:29)
--- NOTE | 2024-08-11 09:16 | P.DS_ITS ---
Discharge Providers Date of Admission: 08/09/24 18:58 Date of Discharge: August 11, 2024 Attending Provider at Admission: Ankush Lenz MD Attending Provider at Discharge: Ankush Lenz MD Primary Care Provider: KURT Storm Diagnoses at Discharge Discharge Diagnosis (1) Acute exacerbation of chronic obstructive bronchitis: Status: Acute (2) Hypoxemia: Status: Acute (3) Influenza A: Status: Acute (4) ASHD (arteriosclerotic heart disease): Status: Chronic Permanent problem details: A three-vessel coronary artery bypass surgery in 2006. Had a WOODS to the LAD, venous graft to the PDA and the obtuse marginal artery. Cardiac authorization 2008 revealed occluded venous graft to the obtuse marginal artery. (5) Hypertension: Status: Chronic Qualifiers: Hypertension type: essential hypertension Qualified Code(s): I10 - Essential (primary) hypertension (6) Hyperlipidemia: Status: Chronic Qualifiers: Hyperlipidemia type: mixed hyperlipidemia Qualified Code(s): E78.2 - Mixed hyperlipidemia Reason for Visit 2 Reason for Visit: flu postive, sent from urgent care sob Hospital Course Hospital Course Janett Samuel is a 58 year old female with a past medical history significant for recurrent bronchitis, coronary artery disease with history of triple-vessel CABG in 2006, hypertension, and hyperlipidemia who presents to the emergency department with reported hypoxia, found to have acute exacerbation of chronic obstructive bronchitis resulting in acute hypoxic respiratory insufficiency secondary to acute influenza A infection. Patient was treated with Tamiflu, IV steroids, breathing treatments, and supplemental oxygen support. Her symptomatology improved but she remained hypoxic. She completed 6-minute walk test which revealed ongoing oxygen needs which was set up through case management. At discharge, she was rotated to prednisone burst, Pulmicort nebs, as well as continued on Tamiflu and nebulizing refills were sent for albuterol nebulizing solutions. Patient discharging home to complete her recovery. Patient in stable condition at time of discharge. Recommend follow-up with PCP within 7 days. Also recommend complete pulmonary function testing when patient is completely recovered. Physical Exam Narrative: General: Patient is awake. Conversational. Very pleasant. Head: Normocephalic. Atraumatic. EOM intact. Neck: No JVD. Cardiovascular: RRR. No gallops. No murmurs. Lungs: End expiratory wheezing throughout bilateral lung trinh. No crackles, rales, or rhonchi. No respiratory distress. On supplemental oxygen support. Skin: No jaundice. No rashes. Abdomen: Normal bowel sounds, abdomen soft and nontender. Extremities: No cyanosis or clubbing. Musculoskeletal: No swollen or erythematous joints. Neurological: Moves all 4 extremities. No myoclonus. Discharge Data Studies Completed and Pending Completed Studies During Hospitalization Category Date Time Status XR chest 1V portable [id number] Stat Exams 08/09/24 15:06 Completed Pending at discharge Category Date Time Status Blood Culture Stat Lab 08/09/24 15:32 Results Radiology Impressions Chest X-Ray 08/09/24 15:06 IMPRESSION: 1. Pulmonary hyperinflation which may indicate obstructive lung disease. 2. Plaque atelectasis in the LEFT base. No acute process. Laboratory Results WBC 5.73 10^3/uL (3.29-11.43) 08/09/24 15:24 RBC 5.01 10^6/uL (3.85-5.65) 08/09/24 15:24 Hgb 14.60 g/dL (11.27-16.99) 08/09/24 15:24 Hct 44.2 % (36-47) 08/09/24 15:24 MCV 88.2 fl (85-98) 08/09/24 15:24 MCH 29.1 pg (27-33) 08/09/24 15:24 MCHC 33.0 g/dL (30-55) 08/09/24 15:24 RDW 12.4 % (12.1-15.1) 08/09/24 15:24 Plt Count 230 10^3/cmm (157-399) 08/09/24 15:24 MPV 10.2 fL (7.4-10.4) 08/09/24 15:24 Neut % (Auto) 59.7 % 08/09/24 15:24 Lymph % (Auto) 28.8 % 08/09/24 15:24 Dickens % (Auto) 10.8 % 08/09/24 15:24 Eos % (Auto) 0.2 % 08/09/24 15:24 Baso % (Auto) 0.3 % 08/09/24 15:24 Neut # (Auto) 3.42 10^3/uL (1.8-7.7) 08/09/24 15:24 Lymph # (Auto) 1.7 10^3/uL (0.8-4.8) 08/09/24 15:24 Dickens # (Auto) 0.6 10^3/uL (0.2-0.9) 08/09/24 15:24 Eos # (Auto) 0.0 10^3/uL (0.0-0.8) 08/09/24 15:24 Baso # (Auto) 0.0 10^3/uL (0.0-0.1) 08/09/24 15:24 Nucleated RBC % (auto) 0 % 08/09/24 15:24 Nucleated RBCs # 0.0 /100WBC 08/09/24 15:24 Specimen Type Arterial 08/09/24 15:10 Sample Site Radial, left 08/09/24 15:10 ABG pH 7.40 (7.35-7.45) 08/09/24 15:10 ABG pCO2 47.7 mmHg (35-45) H 08/09/24 15:10 ABG pO2 58.5 mmHg (80.0-100.0) L 08/09/24 15:10 ABG HCO3 29.7 mmol/L (22-26) H 08/09/24 15:10 ABG O2 Saturation 90.4 08/09/24 15:10 ABG Base Excess 4.0 mmol/L (-2.0-2.0) H 08/09/24 15:10 Eric Test Pos 08/09/24 15:10 A-a O2 Gradient 4.1 mmHg (5-10) L 08/09/24 15:10 Hematocrit 44.5 % (37-47) 08/09/24 15:10 Hgb O2 Saturation 88.5 % (95-100) L 08/09/24 15:10 Carboxyhemoglobin 1.2 %THgb (0.4-20.1) 08/09/24 15:10 Methemoglobin 0.9 % (0.4-1.5) 08/09/24 15:10 Total Hemoglobin 14.5 g/dL (12-16) 08/09/24 15:10 Sodium 142.0 mmol/L (131-143) 08/09/24 15:10 Potassium 3.4 mmol/L (3.5-5.0) L 08/09/24 15:10 Glucose 126.0 mg/dL (70-115) H 08/09/24 15:10 Ionized Calcium 1.1 mmol/L (1.1-1.4) 08/09/24 15:10 O2 Delivery Device Nc 08/09/24 15:10 O2 Liters/Min 3.5 % 08/09/24 15:10 Recreation Facility Manager ID [place] 08/09/24 15:10 Sodium 139 mmol/L (136-145) 08/09/24 15:24 Potassium 3.9 mmol/L (3.5-5.1) 08/09/24 15:24 Chloride 99 mmol/L (98-107) 08/09/24 15:24 Carbon Dioxide 31 mmol/L (22-29) H 08/09/24 15:24 Anion Gap 12.9 (5-19) 08/09/24 15:24 BUN 9 mg/dL (6-20) 08/09/24 15:24 Creatinine 0.5 mg/dL (0.5-0.9) 08/09/24 15:24 GFR Calculation 126.7 mL/min (90-130) 08/09/24 15:24 Glucose 117 mg/dL (65-115) H 08/09/24 15:24 Calculated Osmolality 288 mOsm/kg (285-295) 08/09/24 15:24 Lactic Acid 0.9 mmol/L (0.5-2.2) 08/09/24 15:24 Calcium 8.5 mg/dL (8.5-10.5) 08/09/24 15:24 Total Bilirubin 0.2 mg/dL (0.15-1.2) 08/09/24 15:24 AST 27 U/L (0-32) 08/09/24 15:24 ALT 20 U/L (0-33) 08/09/24 15:24 Alkaline Phosphatase 102 U/L (35-105) 08/09/24 15:24 Troponin T Baseline 16 ng/L (0-10) H 08/09/24 15:24 Troponin T 120 Minute 6.27 ng/L (0-10) 08/09/24 17:22 Delta Troponin T -9.73 ABS# (0-10) L 08/09/24 17:22 Troponin T Hi Sens 6Hr 6.00 ng/L (0-10) 08/09/24 21:33 Troponin T Hi Sens 6Hr Delta -10.00 ng/L (0-12) L 08/09/24 21:33 C-Reactive Protein 30.3 mg/L (0.0-4.9) H 08/09/24 15:24 Total Protein 6.6 g/dL (6.6-8.7) 08/09/24 15:24 Albumin 4.1 g/dL (3.5-5.2) 08/09/24 15:24 Globulin 2.5 g/dL (1.3-4.6) 08/09/24 15:24 Urine Color Yellow (Yellow) 08/09/24 22:43 Urine Appearance Clear (CLEAR) 08/09/24: Urine pH 6.0 (5-7) 08/09/24 22:43 Ur Specific [place] 1.017 (1.005-1.030) 08/09/24: Urine Protein 1+ (Negative) A 08/09/24 22:43 Urine Glucose (UA) Negative (Normal) 08/09/24 22:43 Urine Ketones Trace (Negative) 08/09/24 22:43 Urine Blood Negative (Negative) 08/09/24: Urine Nitrate Negative (Negative) 08/09/24: Urine Bilirubin Negative (Negative) 08/09/24: Urine Urobilinogen 1.0 mg/dL (Negative) 08/09/24 22:43 Ur Leukocyte Esterase Negative (Negative) 08/09/24:43 Urine RBC 0-2 /hpf (0-2) 08/09/24 22:43 Urine WBC 0-5 /hpf (0-5) 08/09/24 22:43 Ur Squamous Epith Cells 6-10 /hpf (0-5) 08/09/24:43 Amorphous Sediment Not Reportable 08/09/24 22:43 Urine Bacteria Trace /hpf (NONE) 08/09/24: Hyaline Casts 3.71 /lpf 08/09/24 22:43 Coronavirus (PCR) Negative (Negative) 08/09/24 15:22 Influenza A (PCR) Positive (Negative) 08/09/24 15:22 Influenza Type B (PCR) Negative (Negative) 08/09/24 15:22 RSV (PCR) Negative (Negative) 08/09/24 15:22 Vitals Last Vital Signs Temp 98.1 F 08/11/24 04:00 Pulse 81 08/11/24 07:53 Resp 18 08/11/24 07:53 BP 132/64 08/11/24 04:00 Pulse Ox 98 08/11/24 07:53 O2 Del Method Nasal Cannula 08/11/24 07:53 O2 Flow Rate 4 08/11/24 08:00 Discharge Plan Discharge Patient Disposition: Home Condition: Stable Prescriptions: New budesonide 0.5 mg/2 mL Suspension For Nebulization 0.5 mg inhalation Q12H 30 Days Qty: 60 0RF oseltamivir 75 mg Capsule 75 mg PO Q12H 3 Days Qty: 6 0RF prednisone 50 mg tablet 50 mg PO DAILY 5 Days Qty: 5 0RF Continued aspirin 325 mg tablet 325 mg PO QDAY multivitamin [Multiple Vitamins] Tablet 1 tab PO QAM nitroglycerin [Nitrostat] 0.4 mg tablet, sublingual 0.4 mg SUBLINGUAL Q5M PRN (Reason: chest pain) Qty: 30 3RF cetirizine [Zyrtec] 10 mg tablet 10 mg PO DAILY (DME) nebulizers Misc See Rx Instructions .ROUTE .MEDSUPPLY Qty: 1 0RF Rx Instructions: As directed potassium chloride [Klor-Con 10] 10 mEq tablet extended release 10 meq PO QDAY Qty: 90 3RF magnesium oxide 400 mg magnesium capsule 400 mg PO BID Qty: 180 1RF lisinopril 40 mg tablet 40 mg PO QDAY Qty: 90 3RF amlodipine 10 mg tablet 10 mg PO QDAY Qty: 90 3RF cholecalciferol (vitamin D3) [Vitamin D3] 125 mcg (5,000 unit) Tablet 125 mcg PO DAILY carvedilol 25 mg tablet 25 mg PO BID furosemide 20 mg tablet 20 mg PO DAILY rosuvastatin [Crestor] 20 mg tablet 20 mg PO QPM albuterol sulfate 2.5 mg /3 mL (0.083 %) solution for nebulization 2.5 mg inhalation Q4H PRN (Reason: shortness of breath or wheezing) Qty: 75 11RF Discharge Orders: Discharge Order (Routine); Ordered 08/11/24 Ordered By: Ankush Lenz Other Ambulatory Orders: DME: Oxygen (Order) Location: None Selected Ordered By: Ankush Lenz Referrals: Thea Umana, [facility] [Primary Care Provider] - 4-7 days Discharge Diet: Advance as tolerated and Usual diet Discharge Activity: Resume usual activity and Increase activity as tolerated Patient Instructions: Opioid Safety Activity Restrictions/Additional Instructions: 1. Take medications as prescribed. 2. Continues supplemental oxygen. Monitor with SpO2 meter. Normal SpO2 should be 92 to 96%. 3. Increase activity as tolerated. 4. Follow-up with the primary provider within 1 week. 5. Recommend full pulmonary function testing after complete recovery, approximately 6 weeks. Discharge Attestations Time Spent in Discharge Care*: greater than 30 min Quality Metrics Clinical Quality Measures [ No reported AMI, CVA or VTE this stay] Coding Level of Care Code Acute Code for Chg Fwd Diagnoses Acute exacerbation of chronic obstructive bronchitis J44.1 Hypoxemia R09.02 Influenza A J10.1 ASHD (arteriosclerotic heart disease) I25.10 Essential hypertension I10 Hypertension type: essential hypertension Mixed hyperlipidemia E78.2 Hyperlipidemia type: mixed hyperlipidemia
--- NOTE | 2024-08-11 09:46 | PC.NURSE ---
Home notified of patient's discharge at this time.
[2024-08-11] MEDS: ipratropium-albuterol 3 mL Neb INHALATION (10:17)
[2024-08-11 10:19] VITALS: PULSE 75; RESP 18; O2SAT 96
--- NOTE | 2024-08-11 11:27 | PC.CHAP ---
Pastoral Care Encounter/Spiritual Assessment Type of Contact [X] Declined superintendent tests visit [] Patient/Family/Request visit [] Outpatient visit [] Follow-up visit [] Physician referral [] Code/Alert [] Routine visit [] Staff referral [] Actively dying [] Patient sleeping [] Family support [] [] Out of room [] Palliative care [] [] Receiving care in room [] Pre-surgical visit [] Trauma [] Long length of stay [] ICU visit [] Other: Relational/Emotional Strength [] Patient feels connected with others/family/visitors/staff [] Distress [] Loneliness/isolation [] Abandonment Spirituality of Patient [] Person of Talita [] Attends Sabianist of their Talita [] Believes in Prayer [] Reads Bible or Advent materials [] There are Spiritual issues to be addressed Wood Heel Flap Trimmer Interventions [] Prayer [] Active listening [] Non-anxious presence [] Spiritual/emotional support [] Crisis/trauma care [] Spiritual counseling [] Bereavement support [] Provided bereavement packet [] Provided Bible/devotional materials [] Provided toy/stuffed animal, coloring book to patient or family member [] Provided Communion [] Anointing/[place] [] Salvation [] Completed spiritual assessment [] Other: Impact on Illness or Injury [] Angry [] Fearful [] Anxious [] Often cries [] Exhaustion [] Unable to work [] Unable to attend jainism [] Unable to walk/stand [] Unable to read [] Unable to drive [] Unable to eat/drink [] Unable to sleep [] Unable to be with family [] Patient intubated [] Other: Summary Time spent with patient
[2024-08-11 11:36] VITALS: BP 122/72; PULSE 75; O2SAT 96
--- NOTE | 2024-08-11 11:37 | PC.NURSE ---
[facility] does not have Tamiflu so prescription was called to [facility] at [place].
== END 2024-08-11 11:37 | disposition home or self-care (01) ==
LOC: ER 17:46 → MEDSURG 18:59
PROVIDERS: Admitting Provider Internal Medicine; Emergency Provider Emergency Medicine; PCP Nurse Practitioner; Visit Provider Internal Medicine
DX: J44.1 Chronic obstructive pulmonary disease with (acute) exacerbation (principal); J10.1 Influenza due to other identified influenza virus with other respiratory manifestations; R09.02 Hypoxemia; Z11.52 Encounter for screening for COVID-19; I25.10 Atherosclerotic heart disease of native coronary artery without angina pectoris; Z95.1 Presence of aortocoronary bypass graft; I10 Essential (primary) hypertension; Z79.899 Other long term (current) drug therapy; Z79.82 Long term (current) use of aspirin; Z88.5 Allergy status to narcotic agent; Z87.891 Personal history of nicotine dependence; E78.2 Mixed hyperlipidemia; J44.0 Chronic obstructive pulmonary disease with (acute) lower respiratory infection
CPT/HCPCS: 36415; 36600; 71045; 80051; 80053; 81001; 82330; 82805; 83605; 84484; 85025; 86140; 87040; 87400; 87637; 93005; 94640; 94760; 96372; 96374; 96376; 99285; G0378; J1650; J2919; J7613; J7626

== ENCOUNTER 2024-09-18 10:36 | Outpatient (CLI) | payer SELFPAY ==
[2024-09-18 11:11] LABS: HF Add Manual Diff No
[2024-09-18 11:13] LABS: Basophils % 0.6 %; Eosinophils # 0.2 10^3/uL (0.0-0.8); Eosinophils % 2.8 %; Hematocrit 43.6 % (36-47); Lymphocytes # 2.2 10^3/uL (0.8-4.8); Lymphocytes % 33.1 %; Mean Corpuscular HGB Conc 32.3 g/dL (30-55); Mean Corpuscular Hemoglobin 28.7 pg (27-33); Mean Corpuscular Volume 88.8 fl (85-98); Mean Platelet Volume 9.8 fL (7.4-10.4); Monocytes # 0.5 10^3/uL (0.2-0.9); Monocytes % 8.1 %; Neutrophils # 3.58 10^3/uL (1.8-7.7); Neutrophils % 54.9 %; Nucleated Red Blood Cells % 0 %; Platelet Count 256 10^3/cmm (157-399); Red Blood Count 4.91 10^6/uL (3.85-5.65); Red Cell Distribution Width 12.4 % (12.1-15.1); White Blood Count 6.52 10^3/uL (3.29-11.43)
[2024-09-18 11:30] LABS: Estmated Average Glucose 126
[2024-09-18 11:58] LABS: 25 Hydroxy Vitamin D 28 ng/mL (30-100); Alanine Aminotransferase 14 U/L (0-33); Albumin Level 4.3 g/dL (3.5-5.2); Alkaline Phosphatase 92 U/L (35-105); Anion Gap 13.4 (5-19); Aspartate Amino Transferase 16 U/L (0-32); Blood Urea Nitrogen 8 mg/dL (6-20); Calcium 8.8 mg/dL (8.5-10.5); Carbon Dioxide 28 mmol/L (22-29); Chloride 104 mmol/L (98-107); Chol HDL Ratio 3.42 mg/dL (0.0-4.40); Cholesterol 130 mg/dL (0-200); Globulin 2.8 g/dL (1.3-4.6); Glomerular Filtration Rate 163.4 mL/min (90-130); Glucose 97 mg/dL (65-115); HDL Cholesterol 38 mg/dL (60-100); LDL Cholesterol Calculated 64 mg/dL (50-129); LDL HDL Ratio 1.68 RATIO (0.00-3.22); Osmolality Calculated 290 mOsm/kg (285-295); Potassium 4.4 mmol/L (3.5-5.1); Sodium 141 mmol/L (136-145); Thyroid Stimulating Hormone 3.37 uIU/mL (0.27-4.20); Total Bilirubin 0.3 mg/dL (0.15-1.2); Total Protein 7.1 g/dL (6.6-8.7); Triglycerides 140 mg/dL (0-150)
== END 2024-09-18 10:37 | disposition home or self-care (01) ==
PROVIDERS: PCP Nurse Practitioner; Visit Provider Dermatology
DX: Z01.89 Encounter for other specified special examinations (principal)
CPT/HCPCS: 36415

== ENCOUNTER 2025-01-09 07:11 | Outpatient (CLI) | payer BC, SELFPAY ==
[2025-01-09 07:31] VITALS: PULSE 65; RESP 18; O2SAT 94
== END 2025-01-09 07:12 | disposition home or self-care (01) ==
LOC: RT 07:12
PROVIDERS: PCP Nurse Practitioner; Visit Provider Nurse Practitioner
DX: J44.1 Chronic obstructive pulmonary disease with (acute) exacerbation (principal)
CPT/HCPCS: 94060; J7613

== ENCOUNTER 2025-02-20 10:50 | Outpatient (CLI) | payer BC, SELFPAY ==
--- NOTE | 2025-02-20 11:00 | MM_ITS ---
WS: [id number] BILATERAL 3D TOMOSYNTHESIS DIGITAL SCREENING MAMMOGRAPHY WITH CAD CLINICAL INFORMATION: Z12.31 - Encounter for screening mammogram for malignant ... HISTORY: Screening mammogram. No current complaints. COMPARISON: 2017 TECHNIQUE: Bilateral CC and MLO views. FINDINGS: Scattered fibroglandular densities bilaterally. No suspicious focal mass, asymmetry, calcifications, or architectural distortion. No evidence of malignancy. MM/MM scr tomosynthesis [id number] IMPRESSION: DENSITY: There are scattered areas of fibroglandular density. BI-RADS: 1 - Negative. FOLLOW UP: 1 Year Follow-up Recommend return to annual screening mammography.
== END 2025-02-20 10:51 | disposition home or self-care (01) ==
LOC: RAD 10:51
PROVIDERS: PCP Nurse Practitioner; Visit Provider Nurse Practitioner
DX: Z12.31 Encounter for screening mammogram for malignant neoplasm of breast (principal); R92.323 Mammographic fibroglandular density, bilateral breasts
CPT/HCPCS: 77063; 77067

== ENCOUNTER → 2025-04-15 10:53 | Outpatient (BNVA) | payer BC, SELFPAY | PROVIDERS: PCP Nurse Practitioner; Visit Provider Nurse Practitioner | DX: Z12.4 Encounter for screening for malignant neoplasm of cervix (principal) | CPT/HCPCS: 88175 ==

== ENCOUNTER → 2025-04-24 16:20 | Outpatient (BNVA) | payer BC, SELFPAY | PROVIDERS: PCP Nurse Practitioner; Visit Provider Nurse Practitioner | DX: L98.9 Disorder of the skin and subcutaneous tissue, unspecified (principal) | CPT/HCPCS: 88304 ==